=== PATIENT | female | born 1970 | race Caucasian/White ===

== ENCOUNTER → 2016-08-29 | Outpatient (CLI) | payer OTHER ==
--- NOTE | 2016-08-29 10:35 | REPMRS ---
Patient History The patient states she had a clinical breast exam in 08/2016. Family history of breast cancer in paternal grandmother. Reductions of both breasts, 1988. Digital Woman Screen Mammo: August 29, 2016 - Exam #: [id number] Bilateral CC and MLO view(s) were taken. Technologist: Mee Gautam, Technologist Prior study comparison: September 08, 2014, digital woman screen mammo performed at [facility]. November 05, 2012, digital woman screen mammo performed at [facility] to [facility]. September 16, 2009, bilateral bilat screen digital mammo performed at [facility] to [facility]. FINDINGS: There are scattered fibroglandular densities. There has been no change in the appearance of the mammogram from the prior studies. There is a mild amount of scattered fibroglandular density which is fairly symmetric. There is no interval development of dominant mass, architectural distortion, or clustered microcalcification suggestive of malignancy. ASSESSMENT: BI-RADS/ACR category 1 mammogram. Negative. Recommendation Routine screening mammogram in 1 year (for women over age 40). This mammogram was interpreted with the aid of an FDA-approved computer-aided dectection system. Electronically Signed By: Miguel Valles MD 08/29/16 [id number]
== END ==
LOC: M WHC 08:35
PROVIDERS: ATTEND Nurse Practitioner Family
DX: Z12.31 Encounter for screening mammogram for malignant neoplasm of breast (principal)

== ENCOUNTER → 2017-04-25 | Outpatient (CLI) | payer OTHER ==
[2017-04-25 10:10] LABS: CONTROL LINE HCG INT CTR LINE PRESENT
[2017-04-25 10:13] LABS: BASO % 0.5 % (0.0-1.0); EOS # 0.1 K/mm3 (0.0-0.50); LARGE UNSTAINED CELL # 0.1 K/mm3 (0.0-0.4); LARGE UNSTAINED CELL % 1.2 % (0.0-4.0); LYMPH # 1.4 K/mm3 (1.5-4.5); LYMPH % 21.6 % (24.0-44.0); MEAN CORPUSCULAR HEMOGLOBIN 31.7 pg (27.0-33.0); MEAN CORPUSCULAR HGB CONC 35.7 g/dl (32.0-36.5); MEAN CORPUSCULAR VOLUME 88.7 fl (80.0-96.0); MONO # 0.2 K/mm3 (0.0-0.8); MONO % 3.1 % (0.0-5.0); NEUTROPHILS # 4.6 K/mm3 (1.8-7.7); NEUTROPHILS % 71.6 % (36.0-66.0); PLATELET COUNT, AUTOMATED 173 k/mm3 (150-450); RED CELL DISTRIBUTION WIDTH 12.8 % (11.5-14.5); WHITE BLOOD COUNT 6.5 K/mm3 (4.0-10.0)
[2017-04-25 10:28] LABS: ALBUMIN 3.7 GM/DL (3.2-5.2); ALKALINE PHOSPHATASE 104 U/L (45-117); ALT/SGPT 28 U/L (12-78); ANION GAP 6 MEQ/L (8-16); AST/SGOT 19 U/L (15-37); BILIRUBIN,TOTAL 0.5 MG/DL (0.2-1.0); BLOOD UREA NITROGEN 14 MG/DL (7-18); CALCIUM LEVEL 8.5 MG/DL (8.5-10.1); CARBON DIOXIDE LEVEL 28 MEQ/L (21-32); CHLORIDE LEVEL 108 MEQ/L (98-107); CHOLESTEROL LEVEL 165 MG/DL (<200); FREE T4 0.91 NG/DL (0.76-1.46); GLOMERULAR FILTRATION RATE > 60.0 (>58); GLUCOSE, FASTING 81 MG/DL (70-105); POTASSIUM SERUM 4.2 MEQ/L (3.5-5.1); SODIUM LEVEL 142 MEQ/L (136-145); TOTAL PROTEIN 7.4 GM/DL (6.4-8.2); TRIGLYCERIDES LEVEL 115 MG/DL (<150)
[2017-04-25 11:06] LABS: ERYTHROCYTE SEDIMENTATION RATE 2 mm/hr (0-20)
[2017-04-25 11:33] LABS: VITAMIN B12 LEVEL 518 PG/ML
[2017-04-25 11:34] LABS: FOLATE 11.3 NG/ML
[2017-04-27 00:55] LABS: Lyme Disease IgG/IgM Antibodie <0.91 ISR (0.00-0.90); Lyme Disease IgM Ab Quantitati <0.80 index (0.00-0.79)
== END ==
LOC: M WUC 08:27
PROVIDERS: ATTEND Physician Assistant Medical
DX: M79.1 Myalgia (principal); G47.00 Insomnia, unspecified; F41.9 Anxiety disorder, unspecified; J45.20 Mild intermittent asthma, uncomplicated; N91.2 Amenorrhea, unspecified

== ENCOUNTER → 2017-06-25 | Outpatient (REF) | payer OTHER | LOC: M SMT 16:57 | PROVIDERS: ATTEND Nurse Practitioner Family | DX: R31.29 Other microscopic hematuria (principal) ==

== ENCOUNTER → 2017-10-31 | Outpatient (CLI) | payer OTHER ==
[~2017-10-31] MED LIST: E-Z-GAS II EFFERVESCENT PACKET (SODIUM BICARB./CITRIC ACID/SIMETHICONE) As Ordered; E-Z-HD 98% w/w 340GM SUSP BTL As Ordered; E-Z-PAQUE 96% w/w SUSP 176GM BTL As Ordered
== END ==
LOC: M RAD 09:06
DX: R10.12 Left upper quadrant pain (principal); K21.9 Gastro-esophageal reflux disease without esophagitis

== ENCOUNTER → 2018-02-01 | Outpatient (REF) | payer OTHER | LOC: M SFHCWAGY 11:46 | DX: N94.819 Vulvodynia, unspecified (principal) ==

== ENCOUNTER → 2018-03-15 | Outpatient (CLI) | payer OTHER | LOC: M PLARAD 08:18 | DX: M54.2 Cervicalgia (principal) ==

== ENCOUNTER → 2018-05-10 | Outpatient (CLI) | payer OTHER | LOC: M WHC 08:12 | DX: Z12.31 Encounter for screening mammogram for malignant neoplasm of breast (principal) | CPT/HCPCS: 77067 ==

== ENCOUNTER → 2018-05-10 | Outpatient (REF) | payer OTHER ==
[2018-05-14 14:16] LABS: HPV HYBRID CAPTURE II Negative (Negative)
== END ==
LOC: M SFHCWAGY 08:34
DX: Z12.4 Encounter for screening for malignant neoplasm of cervix (principal)

== ENCOUNTER 2018-06-18 18:27 | Emergency (ER) | payer OTHER ==
[2018-06-18 19:36] LABS: BASO # 0.1 10^3/uL (0.0-0.2); BASO % 0.5 % (0.0-1.0); EOS # 0.4 10^3/uL (0.0-0.50); EOS % 3.3 % (0.0-3.0); HEMATOCRIT 42.2 % (36.0-47.0); HEMOGLOBIN 13.7 g/dl (12.0-15.5); IMMATURE GRANULOCYTE % 0.3 % (0-3.0); LYMPH # 1.5 10^3/uL (1.5-4.5); LYMPH % 14.5 % (24.0-44.0); MEAN CORPUSCULAR HEMOGLOBIN 29.2 pg (27.0-33.0); MEAN CORPUSCULAR HGB CONC 32.5 g/dl (32.0-36.5); MONO # 0.6 10^3/uL (0.0-0.8); NEUTROPHILS % 75.4 % (36.0-66.0); PLATELET COUNT, AUTOMATED 211 10^3/uL (150-450); RED BLOOD COUNT 4.69 10^6/uL (4.00-5.40); RED CELL DISTRIBUTION WIDTH 12.6 % (11.5-14.5); WHITE BLOOD COUNT 10.6 10^3/uL (4.0-10.0)
[2018-06-18 19:57] LABS: ALBUMIN 3.9 GM/DL (3.2-5.2); ALBUMIN/GLOBULIN RATIO 0.91 (1.00-1.93); ALKALINE PHOSPHATASE 131 U/L (45-117); ALT/SGPT 21 U/L (12-78); ANION GAP 7 MEQ/L (8-16); AST/SGOT 15 U/L (7-37); BILIRUBIN,DIRECT 0.2 MG/DL (0.0-0.2); BILIRUBIN,TOTAL 0.5 MG/DL (0.2-1.0); BLOOD UREA NITROGEN 13 MG/DL (7-18); CALCIUM LEVEL 9.2 MG/DL (8.5-10.1); CARBON DIOXIDE LEVEL 30 MEQ/L (21-32); CHLORIDE LEVEL 105 MEQ/L (98-107); GLOMERULAR FILTRATION RATE 56.9 (>58); GLUCOSE, FASTING 115 MG/DL (70-100); LIPASE 43 U/L (73-393); POTASSIUM SERUM 3.9 MEQ/L (3.5-5.1); SODIUM LEVEL 142 MEQ/L (136-145); TOTAL PROTEIN 8.2 GM/DL (6.4-8.2)
[2018-06-18 21:04] LABS: KETONE, URINE AUTO RFX NEGATIVE (NEGATIVE); MUCUS, URINE RFX SMALL (NEGATIVE); NITRITE, URINE AUTO RFX NEGATIVE (NEGATIVE); RBC, URINE AUTO RFX 6 /HPF (0-3); SPECIFIC GRAVITY UR AUTO RFX 1.029 (1.002-1.035); SQUAM EPITHELIAL CELL UR AURFX 8 /HPF (0-6); WBC, URINE AUTO RFX 6 /HPF (0-3)
[2018-06-18 21:05] LABS: LEUKOCYTE ESTERASE UR AUTO RFX TRACE (NEGATIVE)
[2018-06-18] MEDS: NS 1,000 ML IV (21:56)
[2018-06-18] MEDS: KETOROLAC 30 MG/ML VIAL (J1885) IV (21:57)
[2018-06-18] MEDS: ONDANSETRON 4MG/2ML VIAL (J2405) IV (21:57)
[2018-06-18] MEDS ORDERED: ISOVUE-370 76% 100ML VIAL (Q9967) As Ordered (22:57)
[2018-06-19] MEDS: CIPROFLOXACIN 500 MG TAB PO (01:16)
[2018-06-19] MEDS: predniSONE 20 MG TAB PO (01:16)
[2018-06-19] MEDS: metroNIDAZOLE (FLAGYL) 500 MG TAB PO (01:16)
== END 2018-06-19 01:36 | disposition home or self-care (01) ==
LOC: M ED 06-19 01:36
DX: K63.89 Other specified diseases of intestine (principal); K59.00 Constipation, unspecified; R10.30 Lower abdominal pain, unspecified; R11.0 Nausea; K62.5 Hemorrhage of anus and rectum; K64.9 Unspecified hemorrhoids; E27.9 Disorder of adrenal gland, unspecified; J45.909 Unspecified asthma, uncomplicated; G43.909 Migraine, unspecified, not intractable, without status migrainosus; Z79.899 Other long term (current) drug therapy
CPT/HCPCS: J2405

== ENCOUNTER → 2018-07-08 | Outpatient (CLI) | payer OTHER ==
[2018-07-08 20:24] LABS: C REACTIVE PROTEIN QUANTITATIV 0.52 MG/DL (0.00-0.30)
[2018-07-08 20:24] LABS: IMMUNOGLOBULIN A 316 MG/DL (70-400)
[2018-07-08 20:56] LABS: ERYTHROCYTE SEDIMENTATION RATE 21 mm/hr (0-20)
[2018-07-12 00:30] LABS: ANCA-ATYPICAL <1:20 titer (Neg:<1:20); ANTI-SACCHAROMYCES CEREV. IgA <20.0 Units (0.0-24.9); ANTI-SACCHAROMYCES CEREV. IgG <20.0 Units (0.0-24.9); CYTOPLASMIC NEUTROP AB ANCA-C <1:20 titer (Neg:<1:20); ENDOMYSIAL ABY IgA Negative (Negative); PERINUCLEAR AB ANCA-P <1:20 titer (Neg:<1:20); TISSUE TRANSGLUTAMINASE IgA <2 U/mL (0-3); TISSUE TRANSGLUTAMINASE IgG <2 U/mL (0-5)
== END ==
LOC: M WUC 17:45
DX: R93.3 Abnormal findings on diagnostic imaging of other parts of digestive tract (principal); R10.9 Unspecified abdominal pain; K62.5 Hemorrhage of anus and rectum; R19.4 Change in bowel habit; R11.0 Nausea; R14.0 Abdominal distension (gaseous)
CPT/HCPCS: 86255

== ENCOUNTER → 2018-10-24 | Outpatient (CLI) | payer OTHER ==
[~2018-10-24] MED LIST changes: +AMIT10TA; +CELE1CAP9; +CIPR-249 PO; -E-Z-GAS II EFFERVESCENT PACKET (SODIUM BICARB./CITRIC ACID/SIMETHICONE) As Ordered; -E-Z-HD 98% w/w 340GM SUSP BTL As Ordered; -E-Z-PAQUE 96% w/w SUSP 176GM BTL As Ordered; +FLAG500T PO; +GLUCAGON FOR INJ 1 MG VIAL (J1610) As Ordered ONE; +ISOVUE-370 76% 125ML VIAL (Q9967 PER ML) As Ordered ONE; +PRED20TA PO; +VoLumen 0.1% SUSPENSION 450ML BOTTLE As Ordered ONE; +ZOLP10TA2
--- NOTE | 2018-10-25 16:08 | REP ---
Clinical: Gastritis. Technique: Contrast enhanced CT using enterography technique including axial images in arterial and portal venous phase of enhancement using low density oral and 100 ml Isovue 370 intravenous contrast material. Coronal and sagittal re-formations and MIP imaging obtained. Comparison: 06/18/2018. Findings: Lung bases are clear. Visualized heart and pericardium normal. Liver, spleen, pancreas, gallbladder, right adrenal glands and kidneys are normal. 1 cm left adrenal adenoma remains stable. The enteric system is without obstruction or acute inflammatory process and a a no mucosal thickening, pericolonic stranding, areas of stenosis/stricture identified. No significant diverticulosis. Previously noted element of colitis has resolved. Normal terminal ileum, cecum and appendix identified in the right lower quadrant. Pelvis demonstrates normal bladder and age-appropriate uterus/adnexa. Evidence for tubal ligation. 2.5 cm right adnexal cyst likely physiologic. No pelvic fluid or ascites. No free air. No adenopathy. Abdominal aorta and vasculature without aneurysm or dissection. Musculoskeletal structures without focal osseous abnormality. 1 cm fat containing periumbilical hernia identified. Impression: 1. 1 cm fat containing periumbilical hernia. 2. Essentially normal appearance to the enteric system including stomach, small, and large bowel. 3. No acute abdominopelvic pathology appreciated. Electronically Signed by Berny Penn MD 10/25/2018 03:58 P
== END ==
LOC: M LAB 13:13
PROVIDERS: ATTEND Internal Medicine Gastroenterology
DX: R14.0 Abdominal distension (gaseous) (principal); K29.70 Gastritis, unspecified, without bleeding; K21.0 Gastro-esophageal reflux disease with esophagitis; M54.9 Dorsalgia, unspecified
CPT/HCPCS: 36415; 74177; 81479; 83520; 86003; 86140; J1610; Q9967

== ENCOUNTER → 2018-11-27 | Outpatient (REF) | payer OTHER ==
[~2018-11-27] MED LIST changes: -GLUCAGON FOR INJ 1 MG VIAL (J1610) As Ordered ONE; -ISOVUE-370 76% 125ML VIAL (Q9967 PER ML) As Ordered ONE; -VoLumen 0.1% SUSPENSION 450ML BOTTLE As Ordered ONE
== END ==
LOC: M SFHCWAGY 17:26
PROVIDERS: ATTEND Nurse Practitioner Women's Health
DX: N89.8 Other specified noninflammatory disorders of vagina (principal)

== ENCOUNTER → 2018-12-18 | Outpatient (CLI) | payer OTHER ==
--- NOTE | 2018-12-19 01:17 | REP ---
Clinical: Evaluate for residual Pillcam Technique: Two supine views of the abdomen and pelvis. Findings: Foreign body consistent with Pillcam is identified in the left lower quadrant just above the left iliac crest and possibly within the descending colon. The bowel gas pattern demonstrates fecal stasis and presumed constipation a no bowel obstruction. No obvious perforation. No organomegaly. Bilateral Fiche clips identified in the pelvis. Skeletal structures are relatively normal for age. Impression: Pillcam identified in the left mid/lower abdomen. Electronically Signed by Berny Penn MD 12/19/2018 01:09 A
== END ==
LOC: M WUC 17:13
PROVIDERS: ATTEND Internal Medicine Gastroenterology
DX: Z18.83 Retained stone or crystalline fragments (principal)

== ENCOUNTER → 2019-01-18 | Outpatient (CLI) | payer OTHER ==
[2019-01-18 18:12] LABS: BASO % 0.7 % (0.0-1.0); EOS # 0.1 10^3/uL (0.0-0.50); EOS % 2.2 % (0.0-3.0); HEMOGLOBIN 13.9 g/dl (12.0-15.5); LYMPH # 1.4 10^3/uL (1.5-4.5); LYMPH % 31.2 % (24.0-44.0); MEAN CORPUSCULAR HEMOGLOBIN 30.2 pg (27.0-33.0); MEAN CORPUSCULAR HGB CONC 32.3 g/dl (32.0-36.5); MEAN CORPUSCULAR VOLUME 93.5 fl (80.0-96.0); MONO # 0.3 10^3/uL (0.0-0.8); MONO % 6.2 % (0.0-5.0); NEUTROPHILS # 2.7 10^3/uL (1.8-7.7); NEUTROPHILS % 59.5 % (36.0-66.0); PLATELET COUNT, AUTOMATED 165 10^3/uL (150-450); WHITE BLOOD COUNT 4.6 10^3/uL (4.0-10.0)
[2019-01-18 18:20] LABS: RHEUMATOID FACTOR QUANT < 10.0 IU/ML (<15.0)
[2019-01-18 18:45] LABS: HEMOGLOBIN A1c 5.6 %
[2019-01-18 19:41] LABS: ERYTHROCYTE SEDIMENTATION RATE 16 mm/hr (0-20)
[2019-01-20 08:19] LABS: TOTAL 25(OH) VITAMIN D 21.5 NG/ML (30.0-100.0)
[2019-01-20 08:20] LABS: FOLATE 9.7 NG/ML
[2019-01-20 09:27] LABS: VITAMIN B12 LEVEL 293 PG/ML
== END ==
LOC: M WUC 10:07
PROVIDERS: ATTEND Physician Assistant Medical
DX: G62.9 Polyneuropathy, unspecified (principal); R53.81 Other malaise

== ENCOUNTER → 2019-03-01 | Outpatient (CLI) | payer OTHER ==
[2019-03-01 18:06] LABS: FREE T4 0.84 NG/DL (0.76-1.46); THYROID STIMULATING HORMONE 4.02 uIU/ML (0.358-3.740)
== END ==
LOC: M WUC 09:18
PROVIDERS: ATTEND Physician Assistant Medical
DX: R79.89 Other specified abnormal findings of blood chemistry (principal)

== ENCOUNTER → 2019-03-19 | Outpatient (CLI) | payer OTHER ==
[~2019-03-19] MED LIST changes: +GASTROGRAFIN SOLUTION 30ML (Q9963) As Ordered ONE; +ISOVUE-370 76% 100ML VIAL (Q9967) As Ordered ONE
--- NOTE | 2019-03-19 18:22 | REP ---
CT abdomen and pelvis with IV and oral contrast: History: Lesion of the adrenal gland. Comparison CT studies are reviewed from October 24, 2018, June 18, 2018, and September [address] contrast dose: 100 mL of intravenous Isovue [address] findings: There is a stable oval shaped 12 x 8 mm nodule in the superior aspect of the left adrenal gland, unchanged from June 18, 2018 prior study and most compatible with a benign adenoma. The 2006 examination does not extend low enough to visualize the left adrenal gland. The left and right adrenal glands are otherwise normal. No focal hepatic or splenic lesion is seen. There is evidence of mild fatty infiltration of the liver. No pancreatic abnormality is noted. The gallbladder is unremarkable. The lung bases are clear. No retroperitoneal mass or adenopathy is seen. The kidneys enhance symmetrically and are morphologically intact. Small and large intestinal bowel loops are normal in the abdomen and pelvis. The patient is status post tubal ligation. There is a small low density area in the uterine fundus consistent with a small fibroid. This measures 1 cm in greatest diameter. No adnexal abnormality is seen. Urinary bladder is empty but appears unremarkable. The appendix is at the upper range of normal in size but there is no evidence of periappendiceal inflammation. Impression: Stable 12 mm nodule in the left adrenal gland unchanged from June 18, 2018 prior study. Evidence of mild fatty infiltration of the liver. No acute abdominal abnormality. Electronically Signed by Khris Valles MD 03/19/2019 09:11 P
== END ==
LOC: M RAD 08:57
PROVIDERS: ATTEND Physician Assistant Medical
DX: E27.9 Disorder of adrenal gland, unspecified (principal)
CPT/HCPCS: 74177; Q9963; Q9967

== ENCOUNTER → 2019-03-26 | Outpatient (CLI) | payer OTHER ==
[~2019-03-26] MED LIST changes: -GASTROGRAFIN SOLUTION 30ML (Q9963) As Ordered ONE; -ISOVUE-370 76% 100ML VIAL (Q9967) As Ordered ONE
--- NOTE | 2019-03-26 20:11 | REP ---
HISTORY: Low back pain. COMPARISON: 01/10/2007 Vertebral body height and alignment is within normal limits. There is mild posterior disc space narrowing increased slightly from the prior exam. Vertebral body height and alignment is unchanged and again seen to be within normal limits. There is anterior lipping, increased from the prior exam. There is no spondylolysis or spondylolisthesis. IMPRESSION: Chronic changes as described above. Electronically Signed by Manish Calle DO 03/27/2019 10:55 A
== END ==
LOC: M WUC 16:33
PROVIDERS: ATTEND Physician Assistant Medical
DX: M54.5 Low back pain (principal)

== ENCOUNTER → 2019-04-16 | Outpatient (CLI) | payer OTHER | LOC: M WUC 17:32 | PROVIDERS: ATTEND Physician Assistant Medical | DX: E03.9 Hypothyroidism, unspecified (principal) ==

== ENCOUNTER → 2019-05-12 | Outpatient (CLI) | payer OTHER ==
--- NOTE | 2019-05-12 10:30 | REPMRS ---
Patient History The patient states she had a clinical breast exam in 05/2019. Family history of breast cancer in paternal grandmother. Reductions of both breasts, 1988. No Hormone Replacement Therapy 3D TOMOSYNTHESIS WAS PERFORMED. The [facility] lifetime risk for breast cancer is 17.4%. Digital Woman Screen Mammo: May 12, 2019 - Exam #: [id number] Bilateral CC and MLO view(s) were taken. Technologist: Mee Gautam, Technologist Prior study comparison: May 10, 2018, bilateral digital woman screen mammo performed at [facility] [employer] [facility]. August 29, 2016, digital woman screen mammo performed at [facility] [employer] to [employer] [facility]. FINDINGS: There are scattered fibroglandular densities. There has been no change in the appearance of the mammogram from the prior studies. There is a mild amount of residual fibroglandular tissue which is fairly symmetric. There is no interval development of dominant mass, architectural distortion, or clustered microcalcification suggestive of malignancy. Assessment: BI-RADS/ACR category 1 mammogram. Negative Mammogram. Recommendation Routine screening mammogram in 1 year (for women over age 40). This mammogram was interpreted with the aid of an FDA-approved computer-aided dectection system. Electronically Signed By: Manan Escobar MD 05/12/19 [id number]
== END ==
LOC: M WHC 09:02
PROVIDERS: ATTEND Nurse Practitioner Family
DX: Z12.31 Encounter for screening mammogram for malignant neoplasm of breast (principal)

== ENCOUNTER → 2019-08-07 | Outpatient (REF) | payer OTHER ==
[2019-08-07 13:00] LABS: BASO # 0.1 10^3/uL (0.0-0.2); BASO % 0.8 % (0.0-1.0); EOS # 0.3 10^3/uL (0.0-0.5); HEMATOCRIT 42.9 % (36.0-47.0); HEMOGLOBIN 13.4 g/dl (12.0-15.5); LYMPH # 1.9 10^3/uL (1.5-5.0); LYMPH % 30.5 % (24.0-44.0); MEAN CORPUSCULAR HEMOGLOBIN 29.3 pg (27.0-33.0); MEAN CORPUSCULAR HGB CONC 31.2 g/dl (32.0-36.5); MEAN CORPUSCULAR VOLUME 93.9 fl (80.0-96.0); MONO # 0.4 10^3/uL (0.0-0.8); MONO % 6.4 % (0.0-5.0); NEUTROPHILS # 3.5 10^3/uL (1.5-8.5); PLATELET COUNT, AUTOMATED 178 10^3/uL (150-450); RED BLOOD COUNT 4.57 10^6/uL (4.00-5.40); WHITE BLOOD COUNT 6.2 10^3/uL (4.0-10.0)
[2019-08-07 13:29] LABS: ALBUMIN 3.6 GM/DL (3.2-5.2); ALT/SGPT 31 U/L (12-78); BILIRUBIN,TOTAL 0.4 MG/DL (0.2-1.0); BLOOD UREA NITROGEN 8 MG/DL (7-18); CALCIUM LEVEL 8.7 MG/DL (8.5-10.1); CARBON DIOXIDE LEVEL 28 MEQ/L (21-32); CHLORIDE LEVEL 107 MEQ/L (98-107); CHOLESTEROL LEVEL 180 MG/DL (<200); CHOLESTEROL RISK RATIO 4.615 (<5); CREATININE FOR GFR 1.03 MG/DL (0.55-1.30); GLOMERULAR FILTRATION RATE > 60.0 (>58); GLUCOSE, FASTING 96 MG/DL (70-100); HDL CHOLESTEROL 39 MG/DL (>40); LDL CHOLESTEROL 105 MG/DL (<100); NON-HDL-C 141 MG/DL; POTASSIUM SERUM 4.1 MEQ/L (3.5-5.1); SODIUM LEVEL 141 MEQ/L (136-145); TOTAL 25(OH) VITAMIN D 24.3 NG/ML (30.0-100.0); TOTAL PROTEIN 7.2 GM/DL (6.4-8.2); TRIGLYCERIDES LEVEL 179 MG/DL (<150)
== END ==
LOC: M SFHCADAM 08:19
PROVIDERS: ATTEND Physician Assistant Medical
DX: E03.9 Hypothyroidism, unspecified (principal); E66.01 Morbid (severe) obesity due to excess calories

== ENCOUNTER 2019-09-30 07:56 | Outpatient (RCR) | payer OTHER | END 2019-10-04 | LOC: M PT 07:56 | PROVIDERS: ATTEND Physician Assistant Medical | DX: Z51.89 Encounter for other specified aftercare (principal); N94.10 Unspecified dyspareunia; N94.819 Vulvodynia, unspecified ==

== ENCOUNTER → 2019-10-07 | Outpatient (CLI) | payer OTHER | LOC: M WUC 17:10 | PROVIDERS: ATTEND Physician Assistant Medical | DX: E03.9 Hypothyroidism, unspecified (principal) ==

== ENCOUNTER 2019-10-21 08:00 | Outpatient (RCR) | payer OTHER | END 2019-11-04 | LOC: M PT 08:00 | PROVIDERS: ATTEND Physician Assistant Medical | DX: N94.10 Unspecified dyspareunia (principal); N94.819 Vulvodynia, unspecified ==

== ENCOUNTER → 2019-12-27 | Outpatient (CLI) | payer OTHER ==
[2019-12-27 17:49] LABS: FREE T4 1.12 NG/DL (0.76-1.46); THYROID STIMULATING HORMONE 1.26 uIU/ML (0.358-3.740)
== END ==
LOC: M WUC 09:30
PROVIDERS: ATTEND Physician Assistant Medical
DX: E03.9 Hypothyroidism, unspecified (principal)

== ENCOUNTER → 2020-04-05 | Outpatient (CLI) | payer OTHER | LOC: M LABSMTC 09:30 | PROVIDERS: ATTEND Anesthesiology Pain Medicine | DX: Z20.828 Contact with and (suspected) exposure to other viral communicable diseases (principal) | CPT/HCPCS: C9803; U0002 ==

== ENCOUNTER → 2020-05-13 | Outpatient (CLI) | payer OTHER ==
--- NOTE | 2020-05-13 11:07 | REPMRS ---
Patient History The patient states she had a clinical breast exam in 2019. Family history of breast cancer in paternal grandmother. Reductions of both breasts, 1988. No Hormone Replacement Therapy 3D TOMOSYNTHESIS WAS PERFORMED. The [facility] lifetime risk for breast cancer is 17.1%. [facility]. Digital Woman Screen Mammo: May 13, 2020 - Exam #: [id number] Bilateral CC and MLO view(s) were taken. Technologist: Deborah Rodriguez, Technologist Prior study comparison: May 12, 2019, bilateral digital woman screen mammo performed at [facility]. May 10, 2018, bilateral digital woman screen mammo performed at [facility]. FINDINGS: There are scattered fibroglandular densities. There has been no change in the appearance of the mammogram from the prior studies. There is a mild amount of residual fibroglandular tissue which is fairly symmetric. There is no interval development of dominant mass, architectural distortion, or clustered microcalcification suggestive of malignancy. Assessment: BI-RADS/ACR category 1 mammogram. Negative Mammogram. Recommendation Routine screening mammogram in 1 year (for women over age 40). This mammogram was interpreted with the aid of an FDA-approved computer-aided dectection system. Electronically Signed By: Manan Escobar MD 05/13/20 [id number]
== END ==
LOC: M WHC 09:14
PROVIDERS: ATTEND Nurse Practitioner Family
DX: Z12.31 Encounter for screening mammogram for malignant neoplasm of breast (principal)

== ENCOUNTER → 2020-05-13 | Outpatient (REF) | payer OTHER | LOC: M SFHCWAGY 13:42 | PROVIDERS: ATTEND Nurse Practitioner Family | DX: Z12.4 Encounter for screening for malignant neoplasm of cervix (principal); Z01.419 Encounter for gynecological examination (general) (routine) without abnormal findings ==

== ENCOUNTER → 2020-08-23 | Outpatient (CLI) | payer OTHER ==
[2020-08-23 14:10] LABS: BASO # 0.1 10^3/uL (0.0-0.2); BASO % 0.9 % (0.0-1.0); EOS # 0.2 10^3/uL (0.0-0.5); EOS % 4.3 % (0.0-3.0); HEMATOCRIT 44.9 % (36.0-47.0); HEMOGLOBIN 14.5 g/dl (12.0-15.5); LYMPH # 1.8 10^3/uL (1.5-5.0); LYMPH % 32.5 % (24.0-44.0); MEAN CORPUSCULAR HGB CONC 32.3 g/dl (32.0-36.5); MONO # 0.4 10^3/uL (0.0-0.8); MONO % 7.1 % (0.0-5.0); PLATELET COUNT, AUTOMATED 169 10^3/uL (150-450); RED BLOOD COUNT 4.83 10^6/uL (4.00-5.40); WHITE BLOOD COUNT 5.4 10^3/uL (4.0-10.0)
[2020-08-23 14:46] LABS: ALBUMIN 4.1 GM/DL (3.2-5.2); ALT/SGPT 22 U/L (12-78); BILIRUBIN,TOTAL 0.5 MG/DL (0.2-1.0); BLOOD UREA NITROGEN 14 MG/DL (7-18); CALCIUM LEVEL 9.3 MG/DL (8.5-10.1); CARBON DIOXIDE LEVEL 27 MEQ/L (21-32); CHLORIDE LEVEL 109 MEQ/L (98-107); CHOLESTEROL LEVEL 161 MG/DL (<200); CHOLESTEROL RISK RATIO 4.128 (<5); CREATININE FOR GFR 0.97 MG/DL (0.55-1.30); GLOMERULAR FILTRATION RATE > 60.0 (>58); GLUCOSE, FASTING 100 MG/DL (70-100); HDL CHOLESTEROL 39 MG/DL (>40); LDL CHOLESTEROL 102 MG/DL (<100); NON-HDL-C 122 MG/DL; SODIUM LEVEL 142 MEQ/L (136-145); TOTAL PROTEIN 7.2 GM/DL (6.4-8.2); TRIGLYCERIDES LEVEL 99 MG/DL (<150)
== END ==
LOC: M WUC 10:22
PROVIDERS: ATTEND Physician Assistant Medical
DX: J45.20 Mild intermittent asthma, uncomplicated (principal); K21.9 Gastro-esophageal reflux disease without esophagitis; E03.9 Hypothyroidism, unspecified; E66.01 Morbid (severe) obesity due to excess calories

== ENCOUNTER → 2020-09-17 | Outpatient (CLI) | payer OTHER ==
--- NOTE | 2020-09-17 09:22 | REP ---
INDICATION: UNSPECIFIED ASTHMA WITH ACUTE EXACERBATION COMPARISON: 08/27/2006 TECHNIQUE: PA and lateral. FINDINGS: The mediastinum and cardiac silhouette are normal. The lung jimenez are clear and without acute consolidation, effusion, or pneumothorax. The skeletal structures are intact and normal. IMPRESSION: No acute cardiopulmonary process. <Electronically signed by Berny Penn > 09/17/20 0918
== END ==
LOC: M WUC 08:48
PROVIDERS: ATTEND Physician Assistant
DX: J45.901 Unspecified asthma with (acute) exacerbation (principal)

== ENCOUNTER → 2020-12-29 | Outpatient (CLI) | payer OTHER ==
[~2020-12-29] MED LIST changes: -AMIT10TA; +AMIT10TA7
[2020-12-29 11:27] LABS: RHEUMATOID FACTOR QUANT < 10.0 IU/ML (<15.0)
[2020-12-29 11:34] LABS: TOTAL 25(OH) VITAMIN D 27.4 NG/ML (30.0-100.0)
[2020-12-30 14:17] LABS: ANTINUCLEAR ANTIBODIES DIRECT Negative (Negative)
== END ==
LOC: M LAB 08:36
PROVIDERS: ATTEND Physician Assistant Medical
DX: E55.9 Vitamin D deficiency, unspecified (principal); M54.5 Low back pain

== ENCOUNTER → 2021-02-21 | Outpatient (CLI) | payer OTHER | LOC: M WHC 09:06 | PROVIDERS: ATTEND Nurse Practitioner Women's Health | DX: N93.9 Abnormal uterine and vaginal bleeding, unspecified (principal); N95.0 Postmenopausal bleeding ==

== ENCOUNTER → 2021-02-21 | Outpatient (CLI) | payer OTHER ==
[2021-02-21 10:39] LABS: EOS # 0.1 10^3/uL (0.0-0.5); EOS % 3.7 % (0.0-3.0); HEMATOCRIT 41.3 % (36.0-47.0); HEMOGLOBIN 13.1 g/dl (12.0-15.5); LYMPH # 1.4 10^3/uL (1.5-5.0); LYMPH % 36.1 % (24.0-44.0); MEAN CORPUSCULAR HEMOGLOBIN 28.2 pg (27.0-33.0); MEAN CORPUSCULAR HGB CONC 31.7 g/dl (32.0-36.5); MONO # 0.4 10^3/uL (0.0-0.8); MONO % 9.7 % (2.0-8.0); NEUTROPHILS # 1.9 10^3/uL (1.5-8.5); NEUTROPHILS % 49.2 % (36.0-66.0); PLATELET COUNT, AUTOMATED 164 10^3/uL (150-450); RED BLOOD COUNT 4.64 10^6/uL (4.00-5.40); WHITE BLOOD COUNT 3.8 10^3/uL (4.0-10.0)
[2021-02-21 11:13] LABS: FOLLICLE STIMULATING HORMONE 63.7 mIU/mL; FREE T4 1.01 NG/DL (0.76-1.46); THYROID STIMULATING HORMONE 1.79 uIU/ML (0.358-3.740)
== END ==
LOC: M PLALAB 08:54
PROVIDERS: ATTEND Nurse Practitioner Women's Health
DX: N93.9 Abnormal uterine and vaginal bleeding, unspecified (principal); N95.0 Postmenopausal bleeding

== ENCOUNTER → 2021-03-10 | Outpatient (CLI) | payer OTHER ==
--- NOTE | 2021-03-10 17:10 | REP ---
INDICATION: N93.9 AUB/N95.0 PMB. COMPARISON: 09/19/2010 a normal exam TECHNIQUE: Transvesical and transvaginal imaging FINDINGS: The uterus measures 9.3 x 4.2 x 4.2 cm. The parenchymal echo pattern is within normal limits. There no masses. The endometrial echo complex is smooth and unremarkable appearing measuring 6 mm in its greatest thickness. Neither ovary was visualized transvesical air transvaginally. An incidental likely exophytic nabothian cyst was identified. Urinary bladder measures 10 x 5 x 7 cm. IMPRESSION: Neither ovary was visualized transvesical air transvaginally. Consider further evaluation with pre and post gadolinium enhanced pelvic MRI. <Electronically signed by Manish Calle > 03/10/21 [id number]
== END ==
LOC: M WHC 15:32
PROVIDERS: ATTEND Nurse Practitioner Women's Health
DX: N93.9 Abnormal uterine and vaginal bleeding, unspecified (principal); N95.0 Postmenopausal bleeding

== ENCOUNTER → 2021-05-12 | Outpatient (REF) | payer OTHER ==
[2021-05-12 19:51] LABS: C REACTIVE PROTEIN QUANTITATIV 1.13 MG/DL (0.00-0.30); MAGNESIUM LEVEL 2.2 MG/DL (1.8-2.4); PHOSPHORUS LEVEL 3.8 MG/DL (2.5-4.9)
== END ==
LOC: M SFHCRHEU 15:57
PROVIDERS: ATTEND Internal Medicine
DX: M54.9 Dorsalgia, unspecified (principal); M79.10 Myalgia, unspecified site; M25.40 Effusion, unspecified joint

== ENCOUNTER 2021-05-18 07:54 | Outpatient (CLI) | payer OTHER ==
[~2021-05-18] VITALS: Ht 154.9 cm; Wt 94.1 kg
[~2021-05-18 07:54] MED LIST changes: +ALBUTEROL 90 MCG/ACT 8GM HFA INHALER INH PRN; +ALBUTEROL SULFATE 2.5 MG/0.5 ML INH NEB SOLN INH PRN; +EPINEPHrine INJ 1 MG/ML 1ML AMP IM PRN; +NS 1,000 ML IV SCH; +diphenhydrAMINE 50MG/ML VIAL (J1200) IV PRN; +methylPREDNISolone 125MG 2ML VIAL IV PRN
[2021-05-18] MEDS ORDERED: CASIRIVIMAB/IMDEVIMAB 1,200 MG in NS 250 ML IV ONE (08:10)
[2021-05-18 09:51] VITALS: BP 133/85
[2021-05-18 10:02] VITALS: BP 133/88
[2021-05-18 10:30] VITALS: BP 128/75
[2021-05-18 10:57] VITALS: BP 134/87
[2021-05-18 11:15] VITALS: BP 123/84
[2021-05-18 12:19] VITALS: BP 140/87
== END 2021-05-18 12:40 | disposition home or self-care (01) ==
LOC: M MS4PR 07:54 → M OPCLI4PR 07:54
PROVIDERS: ATTEND Physician Assistant Medical
DX: U07.1 COVID-19 (principal)

== ENCOUNTER → 2021-05-24 | Outpatient (REF) | payer OTHER ==
[~2021-05-24] MED LIST changes: -ALBUTEROL 90 MCG/ACT 8GM HFA INHALER INH PRN; -ALBUTEROL SULFATE 2.5 MG/0.5 ML INH NEB SOLN INH PRN; -EPINEPHrine INJ 1 MG/ML 1ML AMP IM PRN; -NS 1,000 ML IV SCH; -diphenhydrAMINE 50MG/ML VIAL (J1200) IV PRN; -methylPREDNISolone 125MG 2ML VIAL IV PRN
== END ==
LOC: M LAB REF 12:41
PROVIDERS: ATTEND Physician Assistant Medical
DX: R30.0 Dysuria (principal)

== ENCOUNTER → 2021-05-27 | Outpatient (CLI) | payer OTHER | LOC: M WUC 13:03 | PROVIDERS: ATTEND Physician Assistant Medical | DX: E55.9 Vitamin D deficiency, unspecified (principal) ==

== ENCOUNTER → 2021-05-27 | Outpatient (CLI) | payer OTHER ==
--- NOTE | 2021-05-29 08:06 | REP ---
INDICATION: DORSALGIA Physical examination suggesting congenital hip dysplasia. COMPARISON: None. TECHNIQUE: Single AP view of the pelvis. FINDINGS: Single AP view of the pelvis demonstrates normal symmetric appearance to the osseous structures, joint spaces and surrounding soft tissues. IMPRESSION: Essentially symmetric normal age-appropriate appearance to the pelvis. <Electronically signed by Berny Penn > 05/29/21 [id number]
--- NOTE | 2021-05-29 08:07 | REP ---
INDICATION: JOINT EFFUSION COMPARISON: None. TECHNIQUE: AP, lateral, bilateral oblique views right and left ankle. FINDINGS: No acute fracture or dislocation. Skeletal structures and joint spaces are intact, symmetric bilaterally and normal for age. Ankle mortise appears stable. No subcutaneous emphysema or radiodense foreign body. No significant degenerative changes. Incidental right calcaneal heel spur noted. IMPRESSION: Essentially normal bilateral ankle radiograph series. <Electronically signed by Berny Penn > 05/29/21 [id number]
--- NOTE | 2021-05-29 08:08 | REP ---
INDICATION: JOINT EFFUSION COMPARISON: None. TECHNIQUE: AP, lateral, right and left hand oblique views . FINDINGS: Osseous structures, joint spaces, and surrounding soft tissues are essentially age-appropriate, symmetric and within normal limits. No overt osteoarthritic or inflammatory arthritic changes are appreciated. No periarticular calcifications, erosive changes, osteophytosis or significant sclerosis noted. No evidence for acute or healed injury. IMPRESSION: Normal symmetric bilateral hand radiograph series. <Electronically signed by Berny Penn > 05/29/21 [id number]
--- NOTE | 2021-05-29 08:09 | REP ---
INDICATION: JOINT EFFUSION COMPARISON: None. TECHNIQUE: AP, lateral, bilateral oblique views right and left wrist. FINDINGS: The carpal bones, surrounding osseous structures, soft tissues, and joint spaces are essentially symmetric bilaterally, age-appropriate and within normal limits. There is no evidence for acute fracture or dislocation. No subcutaneous emphysema or radiodense foreign body. No significant osteoarthritic or inflammatory arthritic changes are appreciated. IMPRESSION: Normal symmetric bilateral wrist series. <Electronically signed by Berny Penn > 05/29/21 [id number]
== END ==
LOC: M WUC 12:59
PROVIDERS: ATTEND Internal Medicine
DX: M54.9 Dorsalgia, unspecified (principal); M25.40 Effusion, unspecified joint

== ENCOUNTER → 2021-06-10 | Outpatient (CLI) | payer OTHER ==
--- NOTE | 2021-06-14 15:38 | SLEEPHOME ---
DATE: 06/10/2021 ORDERED BY: Emily Tapia Diagnostic home sleep testing was performed due to concern for the obstructive sleep apnea syndrome in this patient with fatigue. For testing, a NOX T3 respiratory monitoring device was used. Continuous record was made of pulse, oxygen saturation, air flow, chest and abdominal strain, and body position. There was 9 hours and 59 minutes of data reviewed. There was 7 hours and 14 minutes marked as time in bed. During the interval marked time in bed, there were 87 respiratory events identified of 10 seconds in duration or greater for a respiratory event index of 12. The events were primarily obstructive. Baseline pulse rate 78. Pulse rate ranged 66-107. Baseline saturation 93%. Saturations fell to 84%. Testing was performed in both the supine and nonsupine positions. IMPRESSION: Abnormal home sleep testing with repetitive respiratory events and oxygen desaturations to 84% with a respiratory event index of 12 is consistent with the obstructive sleep apnea syndrome. RECOMMENDATION: The patient should be encouraged to undergo formal sleep evaluation.
== END ==
LOC: M SLEEP HO 08:34
PROVIDERS: ATTEND Internal Medicine
DX: R53.82 Chronic fatigue, unspecified (principal)

== ENCOUNTER → 2021-06-20 | Outpatient (CLI) | payer OTHER ==
--- NOTE | 2021-06-20 08:52 | REP ---
INDICATION: COUGH, ACUTE UPPER RESPIRATORY INFECTION COMPARISON: 09/17/2020 TECHNIQUE: PA and lateral. FINDINGS: The mediastinum and cardiac silhouette are normal. The lung jimenez are clear and without acute consolidation, effusion, or pneumothorax. The skeletal structures are intact and normal. IMPRESSION: No acute cardiopulmonary process. If the patient remains symptomatic consider chest CT for further evaluation. <Electronically signed by Berny Penn > 06/20/21 0816
== END ==
LOC: M WUC 08:13
PROVIDERS: ATTEND Physician Assistant
DX: J06.9 Acute upper respiratory infection, unspecified (principal); R05.9 Cough, unspecified

== ENCOUNTER → 2021-06-22 | Outpatient (REF) | payer OTHER ==
[2021-06-22 15:48] LABS: INFLUENZA A AMPLIFICATION NEGATIVE (NEGATIVE); INFLUENZA B AMPLIFICATION NEGATIVE (NEGATIVE)
== END ==
LOC: M SFHCADAM 12:29
PROVIDERS: ATTEND Physician Assistant
DX: R06.00 Dyspnea, unspecified (principal); R05.9 Cough, unspecified

== ENCOUNTER → 2021-07-05 | Outpatient (CLI) | payer OTHER | LOC: M CARPUL 08:56 | PROVIDERS: ATTEND Physician Assistant | DX: R06.00 Dyspnea, unspecified (principal) ==

== ENCOUNTER → 2021-07-27 | Outpatient (CLI) | payer OTHER | LOC: M WHC 09:16 | PROVIDERS: ATTEND Nurse Practitioner Women's Health | DX: Z53.9 Procedure and treatment not carried out, unspecified reason (principal) ==

== ENCOUNTER → 2021-08-29 | Outpatient (REF) | payer OTHER ==
[2021-08-29 13:37] LABS: BASO # 0.1 10^3/uL (0.0-0.2); BASO % 1.2 % (0.0-1.0); EOS # 0.1 10^3/uL (0.0-0.5); EOS % 2.7 % (0.0-3.0); HEMATOCRIT 43.5 % (36.0-47.0); HEMOGLOBIN 13.9 g/dl (12.0-15.5); LYMPH # 1.5 10^3/uL (1.5-5.0); LYMPH % 30.6 % (24.0-44.0); MEAN CORPUSCULAR VOLUME 90.6 fl (80.0-96.0); MONO # 0.4 10^3/uL (0.0-0.8); MONO % 7.1 % (2.0-8.0); NEUTROPHILS # 2.8 10^3/uL (1.5-8.5); NEUTROPHILS % 57.6 % (36.0-66.0); PLATELET COUNT, AUTOMATED 162 10^3/uL (150-450); WHITE BLOOD COUNT 4.9 10^3/uL (4.0-10.0)
[2021-08-29 14:19] LABS: ALT/SGPT 24 U/L (12-78); BILIRUBIN,TOTAL 0.3 MG/DL (0.2-1.0); BLOOD UREA NITROGEN 16 MG/DL (7-18); CARBON DIOXIDE LEVEL 28 MEQ/L (21-32); CHLORIDE LEVEL 108 MEQ/L (98-107); CHOLESTEROL LEVEL 161 MG/DL (<200); GLOMERULAR FILTRATION RATE > 60.0 (>58); GLUCOSE, FASTING 100 MG/DL (70-100); SODIUM LEVEL 143 MEQ/L (136-145); TRIGLYCERIDES LEVEL 63 MG/DL (<150)
[2021-08-29 14:20] LABS: ALBUMIN 4.2 GM/DL (3.2-5.2); CHOLESTEROL RISK RATIO 3.577 (<5); FERRITIN 17 NG/ML (8-252); HDL CHOLESTEROL 45 MG/DL (>40); IRON (FE) 47 UG/DL (50-170); LDL CHOLESTEROL 103 MG/DL (<100); NON-HDL-C 116 MG/DL; TOTAL 25(OH) VITAMIN D 40.2 NG/ML (30.0-100.0); TOTAL IRON BINDING CAPACITY 335 UG/DL (250-450); TOTAL PROTEIN 7.6 GM/DL (6.4-8.2)
== END ==
LOC: M SFHCADAM 10:02
PROVIDERS: ATTEND Physician Assistant Medical
DX: Z00.00 Encounter for general adult medical examination without abnormal findings (principal); E03.9 Hypothyroidism, unspecified; K21.9 Gastro-esophageal reflux disease without esophagitis; E66.01 Morbid (severe) obesity due to excess calories; D50.9 Iron deficiency anemia, unspecified

== ENCOUNTER → 2021-09-24 | Outpatient (CLI) | payer OTHER | LOC: M SLEEP 20:00 | PROVIDERS: ATTEND Physician Assistant | DX: G47.33 Obstructive sleep apnea (adult) (pediatric) (principal) ==

== ENCOUNTER → 2021-10-03 | Outpatient (CLI) | payer OTHER | LOC: M CARPUL 09:04 | PROVIDERS: ATTEND Physician Assistant Medical | DX: J45.20 Mild intermittent asthma, uncomplicated (principal) ==

== ENCOUNTER → 2021-11-01 | Outpatient (CLI) | payer OTHER | LOC: M WHC 08:19 | PROVIDERS: ATTEND Nurse Practitioner Women's Health | DX: Z12.31 Encounter for screening mammogram for malignant neoplasm of breast (principal) ==

== ENCOUNTER → 2021-11-21 | Outpatient (CLI) | payer OTHER | LOC: M PLAIMG 08:06 | PROVIDERS: ATTEND Internal Medicine | DX: M54.9 Dorsalgia, unspecified (principal) ==

== ENCOUNTER → 2021-12-29 | Outpatient (REF) | payer OTHER ==
[2021-12-29 17:29] LABS: C REACTIVE PROTEIN QUANTITATIV 1.31 MG/DL (0.00-0.30)
== END ==
LOC: M SFHCRHEU 13:16
PROVIDERS: ATTEND Internal Medicine
DX: R79.82 Elevated C-reactive protein (CRP) (principal); E61.1 Iron deficiency

== ENCOUNTER → 2022-01-16 | Outpatient (CLI) | payer OTHER ==
[~2022-01-16] MED LIST changes: +LIDOCAINE 1% MDV 20ML VIAL As Ordered ONE; +methylPREDNISolone 80MG/ML SUSP 1ML VIAL (J1040) As Ordered ONE
== END ==
LOC: M IRPRO 11:29
PROVIDERS: ATTEND Orthopaedic Surgery
DX: M25.551 Pain in right hip (principal); M25.552 Pain in left hip
CPT/HCPCS: 20610; J1040

== ENCOUNTER → 2022-05-29 | Outpatient (CLI) | payer OTHER ==
[~2022-05-29] MED LIST changes: -LIDOCAINE 1% MDV 20ML VIAL As Ordered ONE; -methylPREDNISolone 80MG/ML SUSP 1ML VIAL (J1040) As Ordered ONE
[2022-05-29 19:09] LABS: HEMOGLOBIN A1c 5.4 %
== END ==
LOC: M WUC 11:56
PROVIDERS: ATTEND Surgery
DX: Z86.39 Personal history of other endocrine, nutritional and metabolic disease (principal)

== ENCOUNTER → 2022-05-29 | Outpatient (CLI) | payer OTHER ==
[2022-05-29 18:13] LABS: HEMATOCRIT 46.2 % (36.0-47.0); HEMOGLOBIN 14.7 g/dl (12.0-15.5); MEAN CORPUSCULAR HEMOGLOBIN 30.4 pg (27.0-33.0); MEAN CORPUSCULAR HGB CONC 31.8 g/dl (32.0-36.5); MEAN CORPUSCULAR VOLUME 95.5 fl (80.0-96.0); PLATELET COUNT, AUTOMATED 189 10^3/uL (150-450); RED BLOOD COUNT 4.84 10^6/uL (4.00-5.40); WHITE BLOOD COUNT 7.5 10^3/uL (4.0-10.0)
[2022-05-29 19:01] LABS: ALBUMIN 4.2 GM/DL (3.2-5.2); ALT/SGPT 22 U/L (12-78); BILIRUBIN,TOTAL 0.6 MG/DL (0.2-1.0); BLOOD UREA NITROGEN 21 MG/DL (7-18); CALCIUM LEVEL 9.2 MG/DL (8.5-10.1); CARBON DIOXIDE LEVEL 27 MEQ/L (21-32); CHLORIDE LEVEL 107 MEQ/L (98-107); CREATININE FOR GFR 0.91 MG/DL (0.55-1.30); GLOMERULAR FILTRATION RATE > 60.0 (>51); GLUCOSE, FASTING 91 MG/DL (70-100); SODIUM LEVEL 140 MEQ/L (136-145); TOTAL PROTEIN 7.5 GM/DL (6.4-8.2)
[2022-05-29 19:09] LABS: ERYTHROCYTE SEDIMENTATION RATE 17 mm/hr (0-30)
== END ==
LOC: M WUC 11:54
PROVIDERS: ATTEND Physician Assistant Medical
DX: K62.5 Hemorrhage of anus and rectum (principal)

== ENCOUNTER → 2022-07-05 | Outpatient (CLI) | payer OTHER ==
[~2022-07-05] MED LIST changes: +LIDOCAINE 1% MDV 20ML VIAL As Ordered ONE; +methylPREDNISolone 80MG/ML SUSP 1ML VIAL (J1040) As Ordered ONE
== END ==
LOC: M IRPRO 12:17
PROVIDERS: ATTEND Orthopaedic Surgery
DX: M25.551 Pain in right hip (principal); M25.552 Pain in left hip
CPT/HCPCS: 20611; J1040

== ENCOUNTER → 2022-07-10 | Outpatient (REF) | payer OTHER ==
[~2022-07-10] MED LIST changes: -LIDOCAINE 1% MDV 20ML VIAL As Ordered ONE; -methylPREDNISolone 80MG/ML SUSP 1ML VIAL (J1040) As Ordered ONE
[2022-07-11 14:53] LABS: C REACTIVE PROTEIN QUANTITATIV 1.5 MG/DL (<1.0)
== END ==
LOC: M SFHCRHEU 11:01
PROVIDERS: ATTEND Internal Medicine
DX: E61.1 Iron deficiency (principal); R79.82 Elevated C-reactive protein (CRP)

== ENCOUNTER → 2022-11-27 | Outpatient (CLI) | payer OTHER ==
[2022-11-27 17:32] LABS: BASO # 0.1 10^3/uL (0.0-0.2); BASO % 0.9 % (0.0-1.0); EOS # 0.2 10^3/uL (0.0-0.5); EOS % 2.3 % (0.0-3.0); HEMATOCRIT 45.9 % (36.0-47.0); HEMOGLOBIN 14.6 g/dl (12.0-15.5); LYMPH # 1.6 10^3/uL (1.5-5.0); LYMPH % 24.1 % (24.0-44.0); MEAN CORPUSCULAR HEMOGLOBIN 29.3 pg (27.0-33.0); MEAN CORPUSCULAR HGB CONC 31.8 g/dl (32.0-36.5); MONO # 0.4 10^3/uL (0.0-0.8); MONO % 6.5 % (2.0-8.0); NEUTROPHILS # 4.4 10^3/uL (1.5-8.5); NEUTROPHILS % 65.9 % (36.0-66.0); PLATELET COUNT, AUTOMATED 190 10^3/uL (150-450); RED BLOOD COUNT 4.99 10^6/uL (4.00-5.40); WHITE BLOOD COUNT 6.6 10^3/uL (4.0-10.0)
[2022-11-27 17:42] LABS: ALBUMIN 4.2 G/DL (3.2-5.2); ALKALINE PHOSPHATASE 121 U/L (46-116); ALT/SGPT 21 U/L (7.0-40); AST/SGOT 18 U/L (<34); BILIRUBIN,TOTAL 0.4 MG/DL (0.3-1.2); BLOOD UREA NITROGEN 19 MG/DL (9-23); CALCIUM LEVEL 9.4 MG/DL (8.5-10.1); CARBON DIOXIDE LEVEL 28 MMOL/L (20-31); CHLORIDE LEVEL 108 MMOL/L (98-107); CHOLESTEROL LEVEL 167 MG/DL (<200); CHOLESTEROL RISK RATIO 4.33 (<5); CREATININE FOR GFR 0.99 MG/DL (0.55-1.30); GLOMERULAR FILTRATION RATE > 60.0 (>51); GLUCOSE, FASTING 88 MG/DL (60-100); HDL CHOLESTEROL 38.5 MG/DL (>40); LDL CHOLESTEROL 102.5 MG/DL (<100); NON-HDL-C 128.5 MG/DL; POTASSIUM SERUM 4.5 MMOL/L (3.5-5.1); SODIUM LEVEL 143 MMOL/L (136-145); THYROID STIMULATING HORMONE 1.452 uIU/ML (0.55-4.78); TOTAL PROTEIN 7.5 G/DL (5.7-8.2); TRIGLYCERIDES LEVEL 130 MG/DL (<150)
[2022-11-27 17:43] LABS: TOTAL 25(OH) VITAMIN D 45.1 NG/ML (20.0-100.0)
== END ==
LOC: M WUC 13:09
PROVIDERS: ATTEND Physician Assistant Medical
DX: J45.20 Mild intermittent asthma, uncomplicated (principal); M79.7 Fibromyalgia; E03.9 Hypothyroidism, unspecified; E66.01 Morbid (severe) obesity due to excess calories; K21.9 Gastro-esophageal reflux disease without esophagitis

== ENCOUNTER → 2022-12-22 | Outpatient (REF) | payer OTHER | LOC: M SFHCWAGY 13:04 | PROVIDERS: ATTEND Nurse Practitioner Family | DX: Z12.4 Encounter for screening for malignant neoplasm of cervix (principal) | CPT/HCPCS: 87624; G0123 ==

== ENCOUNTER → 2022-12-22 | Outpatient (CLI) | payer OTHER | LOC: M WHC 08:43 | PROVIDERS: ATTEND Nurse Practitioner Family | DX: Z12.31 Encounter for screening mammogram for malignant neoplasm of breast (principal) ==

== ENCOUNTER → 2023-03-15 | Outpatient (CLI) | payer OTHER | LOC: M RAD 07:41 | PROVIDERS: ATTEND Physician Assistant Medical | DX: R10.11 Right upper quadrant pain (principal) ==

== ENCOUNTER → 2023-04-17 | Outpatient (CLI) | payer OTHER ==
[~2023-04-17] MED LIST changes: +CELE0.09; -CELE1CAP9
== END ==
LOC: M RAD 15:06
PROVIDERS: ATTEND Physician Assistant Medical
DX: R10.11 Right upper quadrant pain (principal)
CPT/HCPCS: 78227; A9537

== ENCOUNTER → 2023-04-23 | Outpatient (CLI) | payer OTHER | LOC: M ADAMS 15:18 | PROVIDERS: ATTEND Physician Assistant Medical | DX: R07.81 Pleurodynia (principal) ==

== ENCOUNTER → 2023-07-09 | Outpatient (CLI) | payer OTHER ==
[~2023-07-09] MED LIST changes: +methylPREDNISolone SUSP 40MG/ML 1ML VIAL (DEPO MEDROL) As Ordered ONE
== END ==
LOC: M IRPRO 13:38
PROVIDERS: ATTEND Orthopaedic Surgery
DX: M70.62 Trochanteric bursitis, left hip (principal)
CPT/HCPCS: 20611; J0665; J1030

== ENCOUNTER → 2023-11-06 | Outpatient (CLI) | payer OTHER ==
[~2023-11-06] MED LIST changes: -methylPREDNISolone SUSP 40MG/ML 1ML VIAL (DEPO MEDROL) As Ordered ONE
[2023-11-06 10:25] LABS: BASO # 0.1 10^3/uL (0.0-0.2); EOS # 0.2 10^3/uL (0.0-0.5); EOS % 3.4 % (0.0-3.0); HEMATOCRIT 43.7 % (36.0-47.0); HEMOGLOBIN 14.4 g/dl (12.0-15.5); LYMPH # 1.9 10^3/uL (1.5-5.0); MEAN CORPUSCULAR HEMOGLOBIN 30.4 pg (27.0-33.0); MEAN CORPUSCULAR VOLUME 92.4 fl (80.0-96.0); MONO # 0.5 10^3/uL (0.0-0.8); MONO % 7.6 % (2.0-8.0); NEUTROPHILS # 3.6 10^3/uL (1.5-8.5); NEUTROPHILS % 57.8 % (36.0-66.0); PLATELET COUNT, AUTOMATED 168 10^3/uL (150-450); RED BLOOD COUNT 4.73 10^6/uL (4.00-5.40); WHITE BLOOD COUNT 6.2 10^3/uL (4.0-10.0)
[2023-11-06 10:53] LABS: FREE T4 1.12 NG/DL (0.89-1.76); THYROID STIMULATING HORMONE 3.364 uIU/ML (0.55-4.78)
[2023-11-06 10:56] LABS: IRON (FE) 68 UG/DL (50-170)
[2023-11-06 10:57] LABS: ALBUMIN 4.2 G/DL (3.2-5.2); ALKALINE PHOSPHATASE 98 U/L (46-116); ALT/SGPT 12 U/L (7.0-40); AST/SGOT 10 U/L (<34); BILIRUBIN,TOTAL 0.5 MG/DL (0.3-1.2); BLOOD UREA NITROGEN 18 MG/DL (9-23); CALCIUM LEVEL 9.3 MG/DL (8.5-10.1); CARBON DIOXIDE LEVEL 29 MMOL/L (20-31); CHLORIDE LEVEL 109 MMOL/L (98-107); CHOLESTEROL LEVEL 131 MG/DL (<200); CHOLESTEROL RISK RATIO 3.27 (<5); CREATININE FOR GFR 0.97 MG/DL (0.55-1.30); GLOMERULAR FILTRATION RATE > 60.0 (>51); GLUCOSE, FASTING 97 MG/DL (60-100); PERCENT SATURATION 27.8 % (13.2-45.0); POTASSIUM SERUM 3.8 MMOL/L (3.5-5.1); SODIUM LEVEL 146 MMOL/L (136-145); TOTAL IRON BINDING CAPACITY 245 UG/DL (250-425); TOTAL PROTEIN 6.9 G/DL (5.7-8.2); TRIGLYCERIDES LEVEL 105 MG/DL (<150)
== END ==
LOC: M WUC 08:05
PROVIDERS: ATTEND Physician Assistant Medical
DX: E03.9 Hypothyroidism, unspecified (principal); E66.01 Morbid (severe) obesity due to excess calories; D50.9 Iron deficiency anemia, unspecified

== ENCOUNTER → 2024-01-11 | Outpatient (CLI) | payer OTHER ==
[~2024-01-11] MED LIST changes: +LIDOCAINE 1% MDV 20ML VIAL As Ordered ONE; +methylPREDNISolone SUSP 40MG/ML 1ML VIAL (DEPO MEDROL) As Ordered ONE
== END ==
LOC: M IRPRO 14:52
PROVIDERS: ATTEND Orthopaedic Surgery
DX: M70.61 Trochanteric bursitis, right hip (principal); M70.62 Trochanteric bursitis, left hip
CPT/HCPCS: 20611; J0665; J1010

== ENCOUNTER → 2024-05-14 | Outpatient (CLI) | payer OTHER ==
[~2024-05-14] MED LIST changes: -LIDOCAINE 1% MDV 20ML VIAL As Ordered ONE; -methylPREDNISolone SUSP 40MG/ML 1ML VIAL (DEPO MEDROL) As Ordered ONE
== END ==
LOC: M WHC 14:13
PROVIDERS: ATTEND Nurse Practitioner Family
DX: Z12.31 Encounter for screening mammogram for malignant neoplasm of breast (principal)

== ENCOUNTER → 2024-09-26 | Outpatient (CLI) | payer OTHER | LOC: M PLARAD 12:32 | PROVIDERS: ATTEND Pain Medicine Pain Medicine | DX: M51.369 Other intervertebral disc degeneration, lumbar region without mention of lumbar back pain or lower extremity pain (principal); M47.816 Spondylosis without myelopathy or radiculopathy, lumbar region; M51.26 Other intervertebral disc displacement, lumbar region ==

== ENCOUNTER → 2024-12-01 | Outpatient (CLI) | payer OTHER | LOC: M SLEEP HO 11:49 | PROVIDERS: ATTEND Physician Assistant | DX: G47.33 Obstructive sleep apnea (adult) (pediatric) (principal) ==

== ENCOUNTER → 2024-12-03 | Outpatient (REF) | payer OTHER ==
[2024-12-03 18:31] LABS: THYROID STIMULATING HORMONE 3.017 uIU/ML (0.55-4.78)
[2024-12-03 18:32] LABS: FREE T4 1.18 NG/DL (0.89-1.76)
== END ==
LOC: M LABWUC 17:29 → M LAB REF 17:29
PROVIDERS: ATTEND Physician Assistant Medical
DX: E03.9 Hypothyroidism, unspecified (principal)

== ENCOUNTER → 2025-02-18 | Outpatient (CLI) | payer OTHER ==
[~2025-02-18] MED LIST changes: +AMIT10TA11; -AMIT10TA7
[2025-02-18 14:15] LABS: BASO # 0.0 10^3/uL (0.0-0.2); BASO % 0.8 % (0.0-1.0); EOS # 0.1 10^3/uL (0.0-0.5); EOS % 1.9 % (0.0-3.0); LYMPH # 1.3 10^3/uL (1.5-5.0); LYMPH % 35.7 % (24.0-44.0); MONO # 0.3 10^3/uL (0.0-0.8); MONO % 6.9 % (2.0-8.0); NEUTROPHILS # 2.0 10^3/uL (1.5-8.5); NEUTROPHILS % 54.4 % (36.0-66.0); PLATELET COUNT, AUTOMATED 145 10^3/uL (150-450)
[2025-02-18 14:43] LABS: VITAMIN B12 LEVEL 612.0 PG/ML (211-911)
[2025-02-18 14:44] LABS: FREE T4 1.38 NG/DL (0.89-1.76); IRON (FE) 73.0 UG/DL (50-170); PERCENT SATURATION 29.4 % (13.2-45.0)
[2025-02-18 14:46] LABS: TOTAL 25(OH) VITAMIN D 61.7 NG/ML (20.0-100.0)
[2025-02-18 14:52] LABS: ALT/SGPT 27.0 U/L (7.0-40); AST/SGOT 21.0 U/L (<34); CALCIUM LEVEL 9.3 MG/DL (8.5-10.1); CARBON DIOXIDE LEVEL 31.0 MMOL/L (20-31); CHLORIDE LEVEL 106.0 MMOL/L (98-107); CHOLESTEROL LEVEL 166.0 MG/DL (<200); CHOLESTEROL RISK RATIO 3.12 (<5); CREATININE FOR GFR 0.91 MG/DL (0.55-1.30); GLOMERULAR FILTRATION RATE 75.4 (>51); LDL CHOLESTEROL 99.1 MG/DL (<100); MAGNESIUM LEVEL 1.8 MG/DL (1.8-2.4); NON-HDL-C 112.9 MG/DL; PHOSPHORUS LEVEL 3.9 MG/DL (2.5-4.9); POTASSIUM SERUM 4.5 MMOL/L (3.5-5.1); PTH INTACT 43.3 PG/ML (18.5-88.0); SODIUM LEVEL 147.0 MMOL/L (136-145); TRIGLYCERIDES LEVEL 69.0 MG/DL (<150)
[2025-02-21 04:32] LABS: MANGANESE, BLOOD 11.4 mcg/L (4.2-16.5)
[2025-02-21 21:28] LABS: VITAMIN A, RETINOL LEVEL 36.0 mcg/dL (38-98)
[2025-02-23 08:52] LABS: SELENIUM LEVEL BLOOD 189.0 mcg/L (100-250)
[2025-02-24 08:08] LABS: VITAMIN B6,PYRIDOXAL PHOSPHATE 53.4 ng/mL (2.1-21.7)
[2025-02-24 18:12] LABS: VITAMIN B1 LEVEL WHOLE BLOOD 116.0 nmol/L (78-185)
[2025-02-25 01:06] LABS: COPPER, RBC 0.67 ug/mL (0.50-1.00); ZINC RBC 1447.0 ug/dL (878-1660)
== END ==
LOC: M PLALAB 10:08
PROVIDERS: ATTEND Physician Assistant Medical
DX: D50.9 Iron deficiency anemia, unspecified (principal); J45.20 Mild intermittent asthma, uncomplicated; K21.9 Gastro-esophageal reflux disease without esophagitis; E03.9 Hypothyroidism, unspecified

== ENCOUNTER → 2025-03-10 | Outpatient (REF) | payer OTHER ==
[~2025-03-10] MED LIST changes: +LEVO25TA5 PO; +LEXA1TAB PO; +PREG100C2 PO; +TEMA30CA PO; +TIRZ10PE3 SQ; +ZOLP10TA11; -ZOLP10TA2
[2025-03-16 22:53] LABS: LYME TOTAL ANTIBODY CIA <= 0.90 Index (<=0.90)
== END ==
LOC: M LABWUC 17:27
PROVIDERS: ATTEND Physician Assistant Medical
DX: Z11.9 Encounter for screening for infectious and parasitic diseases, unspecified (principal); W57.XXXA Bitten or stung by nonvenomous insect and other nonvenomous arthropods, initial encounter

== ENCOUNTER → 2025-03-13 | Outpatient (CLI) | payer OTHER ==
[~2025-03-13] MED LIST changes: -LEVO25TA5 PO; -LEXA1TAB PO; +LIDOCAINE 1% MDV 20 ML VIAL As Ordered ONE; -PREG100C2 PO; -TEMA30CA PO; -TIRZ10PE3 SQ; -ZOLP10TA11; +ZOLP10TA2; +methylPREDNISolone SUSP 40 MG/ML 1 ML VIAL As Ordered ONE
== END ==
LOC: M IRPRO 13:05
PROVIDERS: ATTEND Orthopaedic Surgery
DX: M70.62 Trochanteric bursitis, left hip (principal); M70.61 Trochanteric bursitis, right hip

== ENCOUNTER 2025-04-07 11:43 | Emergency (ER) | payer OTHER ==
[~2025-04-07 11:43] MED LIST changes: -LIDOCAINE 1% MDV 20 ML VIAL As Ordered ONE; -methylPREDNISolone SUSP 40 MG/ML 1 ML VIAL As Ordered ONE
[2025-04-07 11:48] VITALS: TEMP 97.5
[2025-04-07] MEDS ORDERED: TIRZ10PE3 SQ (11:55)
[2025-04-07] MEDS ORDERED: LEXA1TAB PO (11:55)
[2025-04-07] MEDS ORDERED: TEMA30CA PO (11:55)
[2025-04-07] MEDS ORDERED: PREG100C2 PO (11:55)
[2025-04-07] MEDS ORDERED: LEVO25TA5 PO (11:55)
[2025-04-07] MEDS ORDERED: ISOVUE-370 76% 100 ML VIAL As Ordered ONE (12:05)
[2025-04-07 12:21] LABS: BASO # 0.0 10^3/uL (0.0-0.2); BASO % 0.9 % (0.0-1.0); EOS # 0.1 10^3/uL (0.0-0.5); EOS % 3.0 % (0.0-3.0); LYMPH # 1.7 10^3/uL (1.5-5.0); LYMPH % 35.9 % (24.0-44.0); MONO # 0.4 10^3/uL (0.0-0.8); MONO % 8.9 % (2.0-8.0); NEUTROPHILS # 2.4 10^3/uL (1.5-8.5); NEUTROPHILS % 51.1 % (36.0-66.0); PLATELET COUNT, AUTOMATED 149 10^3/uL (150-450)
[2025-04-07 12:34] LABS: INR 0.96
[2025-04-07 12:57] LABS: CPK CREATINE PHOSPHOKINASE 85 U/L (34-145)
[2025-04-07 12:58] LABS: ALT/SGPT 30 U/L (7.0-40); AST/SGOT 31 U/L (<34); CK-MB VALUE MASS 1.1 NG/ML (<3.6); MB/CK RELATIVE INDEX 1.29 (< OR =4)
[2025-04-07 13:00] LABS: FREE T4 1.29 NG/DL (0.89-1.76)
[2025-04-07] MEDS: NS 500 ML IV ONE (13:05)
[2025-04-07] MEDS: ASPIRIN 325 MG TAB PO ONE (14:00)
[2025-04-07 14:01] LABS: CK-MB VALUE MASS < 1.0 NG/ML (<3.6)
[2025-04-07 14:03] LABS: CPK CREATINE PHOSPHOKINASE 70 U/L (34-145)
[2025-04-07] MEDS ORDERED: HOME MED LIST COMPLETE! XX SCH (15:40)
[2025-04-07 17:00] VITALS: BP 134/76; O2SAT 99
== END 2025-04-07 17:10 | disposition home or self-care (01) ==
LOC: M ED 11:43
DX: R26.81 Unsteadiness on feet (principal); H53.9 Unspecified visual disturbance; R00.1 Bradycardia, unspecified; J45.909 Unspecified asthma, uncomplicated; M54.50 Low back pain, unspecified; E66.9 Obesity, unspecified; M79.7 Fibromyalgia; G47.33 Obstructive sleep apnea (adult) (pediatric); E03.9 Hypothyroidism, unspecified; Z79.899 Other long term (current) drug therapy
CPT/HCPCS: 36415; 70450; 70496; 70498; 70544; 70551; 71045; 80047; 80076; 82550; 82553; 84439; 84443; 84484; 85025; 85610; 85730; 86850; 86900; 86901; 93005; 93041; 94760; 96360; 96361; 99285; Q9967

== ENCOUNTER → 2025-06-24 | Outpatient (CLI) | payer OTHER ==
[~2025-06-24] MED LIST changes: +LEVO25TA5 PO; +LEXA1TAB PO; +PREG100C2 PO; +TEMA30CA PO; +TIRZ10PE3 SQ; +ZOLP10TA11; -ZOLP10TA2
== END ==
LOC: M WHC 08:55
PROVIDERS: ATTEND Physician Assistant
DX: Z12.31 Encounter for screening mammogram for malignant neoplasm of breast (principal); R92.323 Mammographic fibroglandular density, bilateral breasts

== ENCOUNTER → 2025-06-24 | Outpatient (REF) | payer OTHER ==
[2025-06-24 14:37] LABS: ESTRADIOL < 19.0 PG/ML; LUTEINIZING HORMONE 46.0 mIU/ML
[2025-06-24 14:38] LABS: PROGESTERONE < 0.21 NG/ML
[2025-06-26 16:20] LABS: HPV APTIMA Not Detected (Not Detected)
== END ==
LOC: M PLALAB 13:12
PROVIDERS: ATTEND Physician Assistant
DX: Z12.4 Encounter for screening for malignant neoplasm of cervix (principal); N95.1 Menopausal and female climacteric states
CPT/HCPCS: 36415; 82670; 83001; 83002; 84144; 87624; G0123